=== PATIENT | female | born 1970 | race Caucasian/White ===

== ENCOUNTER 2023-11-23 00:14 | Day surgery (SDC) | payer BC, OTHER, SELFPAY ==
[2023-11-09 14:05] VITALS: BMI 29.3
[2023-11-23 09:17] VITALS: BP 141/64; PULSE 82; RESP 20; TEMP 36.1; O2SAT 100; BMI 29.8
[2023-11-23] MEDS: LACTATED RINGERS 1,000 ML 150 ML IV CONT (09:25)
--- NOTE | 2023-11-23 09:34 | P.PNAN_ITS ---
Anes - Initial Pre Proc Eval Procedure: Operation Date: 11/23/23 10:30 Proposed Procedures p Colonoscopy - Yusuf Mena MD Date/Time: 11/23/23 09:34 Surgeon: Yusuf Mena MD Pre Op Diagnosis: Family history malignant neoplasm of digestive org Patient Data Age: 53 Gender: F Height: 1.65 m Weight: 81.4 kg Last Vital Signs Temp 97 F L 11/23/23 09:17 Pulse 82 11/23/23 09:17 Resp 20 11/23/23 09:17 BP 141/64 H 11/23/23 09:17 Pulse Ox 100 11/23/23 09:17 O2 Del Method Room Air 11/23/23 09:17 Allergies Allergy/AdvReac Type Severity Reaction Status Date / Time No Known Allergies Allergy Verified 11/23/23 09:17 Home Medications Medication Instructions Recorded Confirmed Type No Home Medications 11/09/23 11/23/23 History Patient hx anesthesia problems: none Family hx anesthesia problems: none Results Review: All pre-operative results and documents have been reviewed as part of the pre- operative evaluation. [facility] Social History Social History Alcohol intake: current Living arrangements: with family Spiritual care concerns: No Anes - Eval Final PreProcedure Day of Procedure 11/23/23 09:34 Patient weight: overweight Heart: regular rate and rhythm Lungs: clear to auscultation Airway: Mallampati scale class II Neurological: alert and oriented Last oral intake: >/= 8 hours ASA classification: I Emergent: no Anesthetic plan: proceed Anesthesia type and monitoring: general GIVS and standard monitoring Results Review: All pre-operative results and documents have been reviewed as part of the pre- operative evaluation. Pt active w scaled crossfit/peleton cycle, no cp or sob. Informed Consent: The patient's anesthetic plan and its attendant risks and benefits were discussed with the patient/family/POA. Questions were solicited and answers provided to the satisfaction of the patient/family/POA.
--- NOTE | 2023-11-23 10:16 | PM.HPGS ---
History of Present Illness History of Present Illness Consent: Risks, benefits, and alternatives have been discussed and questions answered. Patient agrees to proceed with procedure. Chief complaint: Family history malignant neoplasm of digestive org Narrative: Rosina Souza is a 53 year old female with last colonoscopy 2019, mother had colon cancer Review of Systems Review of Systems: All systems reviewed & are unremarkable except as noted in HPI and below PMFSH Past Medical History Medical History (Updated 11/23/23 @ 10:16 by Yusuf Mena MD) Family history of colon cancer in mother Social History Social History Alcohol intake: current Living arrangements: with family Spiritual care concerns: No Meds Home Medications and Allergies Home Medications Medication Instructions Recorded Confirmed Type No Home Medications 11/09/23 11/23/23 History Allergies Allergy/AdvReac Type Severity Reaction Status Date / Time No Known Allergies Allergy Verified 11/23/23 09:17 Vital Signs Vital Signs - 24 hr 11/23/23 09:17 Temperature 97 F L Pulse Rate 82 Respiratory Rate 20 Blood Pressure 141/64 H Pulse Oximetry 100 Oxygen Delivery Room Air Exam Const: General: comfortable and no acute distress HENMT: Face/Nose/Sinus: Normal nares present Eyes: General: appearance normal, both eyes and all related structures Neck: Neck: no JVD Resp: Auscultation: clear to auscultation bilaterally Cardio: Rate: regular rate Rhythm: regular rhythm GI: Inspection: non-distended GI Palp: Yes Soft to palpation Skin: General skin exam: normal color Neuro: General: gait normal Speech: normal speech Extrem: General: normal to inspection Psych: Mental Status: mental status grossly normal Assessment and Plan Assessment and plan (1) Family history of colon cancer in mother: Code(s): Z80.0 - Family history of malignant neoplasm of digestive organs Status: Acute Assessment and Plan: colonoscopy
[2023-11-23 10:35] VITALS: BP 114/62; PULSE 84; RESP 20; O2SAT 95
[2023-11-23 10:44] VITALS: BP 109/70; PULSE 83; RESP 20; O2SAT 100
[2023-11-23 10:53] VITALS: BP 112/64; PULSE 72; RESP 20; O2SAT 98
== END 2023-11-23 11:02 | disposition home or self-care (01) ==
PROVIDERS: Referring Provider Nurse Practitioner Obstetrics & Gynecology; Visit Provider Internal Medicine Gastroenterology
PROC: 0DJD8ZZ Inspection of Lower Intestinal Tract, Via Natural or Artificial Opening Endoscopic (ICD-10-PCS; CPT 45378; principal; 2023-11-23 10:30)
DX: Z12.11 Encounter for screening for malignant neoplasm of colon (principal); K63.5 Polyp of colon; K57.30 Diverticulosis of large intestine without perforation or abscess without bleeding; K64.8 Other hemorrhoids; Z80.0 Family history of malignant neoplasm of digestive organs
CPT/HCPCS: 45385; 88305; J2001; J2704; J7120